=== PATIENT | female | born 1980 | race Two or more races ===

== ENCOUNTER 2016-12-30 19:32 | Emergency (ER) | payer OTHER ==
[~2016-12-30] VITALS: Ht 170.2 cm; Wt 72.6 kg
[2016-12-30 21:25] VITALS: BP 100/70
== END 2016-12-30 22:04 | disposition home or self-care (01) ==
LOC: ER 19:35
DX: J40 Bronchitis, not specified as acute or chronic (principal); H60.91 Unspecified otitis externa, right ear